=== PATIENT | female | born 1940 | race Two or more races ===

== ENCOUNTER → 2017-12-06 | Outpatient (CLI) | payer MEDICARE, OTHER ==
[~2017-12-06] MED LIST: ASPI-556 PO; METH10TA7 PO; SIMV10TA6 PO; TELM80TA2 PO
== END | disposition home or self-care (01) ==
LOC: RADMN 08:31
PROVIDERS: ATTEND Internal Medicine Cardiovascular Disease
DX: I50.20 Unspecified systolic (congestive) heart failure (principal); I42.5 Other restrictive cardiomyopathy; J20.9 Acute bronchitis, unspecified
CPT/HCPCS: 78472; Q3010